=== PATIENT | male | born 1930 | race Caucasian/White ===

== ENCOUNTER 2016-09-23 14:04 | Emergency (ER) | payer MEDICARE ==
[2016-09-23 14:25] VITALS: BP 169/77; PULSE 55; RESP 18; TEMP 97.9; O2SAT 99
--- NOTE | 2016-09-23 16:33 | C.PDOC ---
History Of Present Illness Pt fell injuring his left elbow 20 days ago. Pain resolved, but pt has a swelling in the proximal forearm that persists. Time Seen by Provider: 09/23/16 15:14 Chief Complaint (Nursing): Abnormal Skin Integrity History Per: Patient Onset/Duration Of Symptoms: Days (20) Current Symptoms Are (Timing): Still Present Location Of Injury: Left: Elbow Quality Of Symptoms: Swollen. denies: Painful, Draining Severity: Moderate Additional History Per: Prior Records Past Medical History Reviewed: Historical Data, Nursing Documentation, Vital Signs Vital Signs: Last Vital Signs Temp 97.9 F 09/23/16 14:23 Pulse 55 L 09/23/16 14:23 Resp 18 09/23/16 14:23 BP 169/77 H 09/23/16 14:23 Pulse Ox 99 09/23/16 14:23 - Medical History PMH: Benign Prostatic Hyperplasia, HTN Family History: States: Unknown Family Hx - Social History Hx Alcohol Use: No Hx Substance Use: No - Immunization History Hx Tetanus Toxoid Vaccination: No Hx Influenza Vaccination: No Hx Pneumococcal Vaccination: No Review Of Systems Except As Marked, All Systems Reviewed And Found Negative. Constitutional: Negative for: Fever Cardiovascular: Negative for: Chest Pain Respiratory: Negative for: Shortness of Breath Gastrointestinal: Negative for: Vomiting, Abdominal Pain Musculoskeletal: Negative for: Neck Pain, Shoulder Pain, Arm Pain, Hand Pain Skin: Positive for: Bruising (left proximal forearm) Neurological: Negative for: Weakness, Numbness Physical Exam - Physical Exam Appears: Non-toxic, No Acute Distress Skin: Warm, Dry Head: Atraumatic, Normacephalic Eye(s): bilateral: Normal Inspection, PERRL, EOMI Neck: Normal ROM, Supple Extremity: Normal ROM, No Tenderness, Capillary Refill (wnl), Swelling ( Fluctuant ecchymotic area on left proximal forearm) Pulses: Left Radial: Normal Neurological/Psych: Oriented x3, Normal Motor, Normal Sensation ED Course And Treatment O2 Sat by Pulse Oximetry: 99 Pulse Ox Interpretation: Normal - Other Rad Left elbow x-rays X-Ray: Interpreted by Me, Viewed By Me Interpretation: No acute fx. Progress Note: Fluctuant area in left forearm was aspirated with a 19g needle after sterilizing the skin with betadyne. Dark blood came out. No pus. Reassessment Condition: Improved Disposition Discussed With : Mitchell Medina Comment: He saw pt in the ED and will follow up with pt in his office. Doctor Will See Patient In The: ED Counseled Patient/Family Regarding: Studies Performed, Diagnosis, Need For Followup, Rx Given - Disposition Referrals: Mitchell Medina MD [Staff Provider] - Disposition: HOME/ ROUTINE Disposition Time: 16:36 Condition: IMPROVED Additional Instructions: Follow up with your doctor in 2-3 days. Return to the ER if you develop redness , fever, pus drainage, worsening of symptoms or if you have any other concerns. Prescriptions: Cephalexin [cephalexin] 500 mg PO TID #15 cap Instructions: Hematoma (ED) Forms: [employer] (Slovenian) - Clinical Impression Clinical Impression: Traumatic hematoma of left forearm
[2016-09-23] MEDS ORDERED: Bacitracin 500 Units/gm Oint Foilpak UD ONE (16:38)
--- NOTE | 2016-09-23 16:54 | RAD ---
PROCEDURE: Radiographs of the left elbow. HISTORY: Injured during fall 2 weeks ago COMPARISON: No prior. FINDINGS: BONES: No acute fracture. JOINTS: Normal. No osteoarthritis. SOFT TISSUES: Focal soft tissue swelling adjacent to the radial head. The finding is marked on the study for review. No visulaized radiopaque/visualized foreign body. JOINT EFFUSION: None. OTHER FINDINGS: None IMPRESSION: Soft tissue swelling without acute articular or osseous abnormality.
== END 2016-09-23 16:50 | disposition home or self-care (01) ==
LOC: C.ER 14:04
DX: S50.12XA Contusion of left forearm, initial encounter (principal); W19.XXXA Unspecified fall, initial encounter; Y92.9 Unspecified place or not applicable